=== PATIENT | male | born 1995 | race Caucasian/White ===

== ENCOUNTER 2016-05-09 03:00 | Emergency (ER) | payer OTHER ==
[~2016-05-09] VITALS: Ht 170.2 cm; Wt 70.3 kg
[~2016-05-09 03:00] MED LIST: MAPAP325 MG PO; NAPROSYN375 MG PO; SULFAMETHOXAZOL PO
[2016-05-09 03:03] VITALS: BP 129/66
--- NOTE | 2016-05-09 03:13 | NUR ---
AMBULATED TO ER BED 4
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
--- NOTE | 2016-05-09 03:28 | NUR ---
MOVED TO ER BED 1
--- NOTE | 2016-05-09 03:36 | NUR ---
pt to xray via molly in stable condition
--- NOTE | 2016-05-09 03:36 | NUR ---
dr figueroa at bedside
--- NOTE | 2016-05-09 03:36 | NUR ---
report received from majo rn
--- NOTE | 2016-05-09 04:00 | NUR ---
pt returned from xray in stable condition
[2016-05-09 04:06] VITALS: BP 129/66
== END 2016-05-09 04:06 | disposition home or self-care (01) ==
LOC: MED 03:00
DX: S16.1XXA Strain of muscle, fascia and tendon at neck level, initial encounter (principal); S20.211A Contusion of right front wall of thorax, initial encounter; R03.0 Elevated blood-pressure reading, without diagnosis of hypertension; V43.62XA Car passenger injured in collision with other type car in traffic accident, initial encounter; W22.19XA Striking against or struck by other automobile airbag, initial encounter; Y93.89 Activity, other specified; Y92.89 Other specified places as the place of occurrence of the external cause; Y99.8 Other external cause status

== ENCOUNTER 2017-08-06 22:28 | Emergency (ER) | payer OTHER ==
[~2017-08-06] VITALS: Ht 172.7 cm; Wt 68.0 kg
[~2017-08-06 22:28] MED LIST changes: +ACET-7568 PO; -MAPAP325 MG PO; +NAPR375T2 PO; -NAPROSYN375 MG PO; -SULFAMETHOXAZOL PO; +[UNRECOGNIZED DRUG - CODE] PO
[2017-08-06 22:33] VITALS: BP 134/67
--- NOTE | 2017-08-06 22:38 | NUR ---
TO LOBBY, A/W ARMANDO SOTO VSS. ERMD NOTED.
--- NOTE | 2017-08-06 22:41 | NUR ---
Patient being evaluated by physician at TRIAGE ROOM.
[2017-08-06 23:03] VITALS: BP 134/67
--- NOTE | 2017-08-06 23:03 | NUR ---
Patient discharged with v/s stable. Written and verbal after care instructions given and explained. Patient verbalized understanding. Ambulatory with steady gait. All questions addressed prior to discharge. Advised to follow up with PMD.
== END 2017-08-06 23:03 | disposition home or self-care (01) ==
LOC: MED 22:28
DX: Z13.89 Encounter for screening for other disorder (principal); F20.9 Schizophrenia, unspecified; F90.9 Attention-deficit hyperactivity disorder, unspecified type
CPT/HCPCS: 99283